=== PATIENT | male | born 1975 | race Caucasian/White ===

== ENCOUNTER 2024-06-02 13:06 | Outpatient (CLI) | payer BC, SELFPAY | END 2024-06-02 13:07 | disposition home or self-care (01) | PROVIDERS: PCP Emergency Medicine; Visit Provider Emergency Medicine | DX: E78.5 Hyperlipidemia, unspecified (principal); R73.01 Impaired fasting glucose; Z13.220 Encounter for screening for lipoid disorders | CPT/HCPCS: 80053; 80061; 84443 ==

== ENCOUNTER 2024-06-23 16:10 | Outpatient (CLI) | payer BC, SELFPAY | END 2024-06-23 16:11 | disposition home or self-care (01) | LOC: LKVREF 16:12 | PROVIDERS: PCP Emergency Medicine; Visit Provider Emergency Medicine | DX: Z86.39 Personal history of other endocrine, nutritional and metabolic disease (principal); E78.5 Hyperlipidemia, unspecified | CPT/HCPCS: 82607 ==

== ENCOUNTER 2024-07-05 19:01 | Outpatient (CLI) | payer BC, SELFPAY ==
--- NOTE | 2024-07-19 12:47 | W.PM.SLEEP ---
Sleep Study Details Details Interpreting Provider: Arley Date of Sleep Study: 07/05/24 Sleep Study Details: STUDY TYPE:? Home unattended ? BMI:? 37.6 ORDERING PROVIDER:Joyce Reeder INDICATION:? Concern about sleep apnea ? SLEEP SUMMARY:? 369 MINUTES MONITORED REPIRATORY SUMMARY: AHI 26.9. Note the entire study was done in the supine position Low oxygen 75 3.4% of study oxygen less than 90% Snoring 97.4% PERIODIC LIMB MOVEMENTS OF SLEEP:? Not recorded CARDIAC:? Range 43-99, mean 58.9 beats per minute IMPRESSION:? Moderate obstructive sleep apnea RECOMMENDATION: Treatment options include weight loss, CPAP and/or dental appliance. Would favor trial of CPAP.
== END 2024-07-05 19:02 | disposition home or self-care (01) ==
LOC: SLEEP 19:02
PROVIDERS: PCP Emergency Medicine; Visit Provider Emergency Medicine
DX: G47.33 Obstructive sleep apnea (adult) (pediatric) (principal)
CPT/HCPCS: 95806

== ENCOUNTER 2025-04-11 15:02 | Outpatient (CLI) | payer BC, SELFPAY | END 2025-04-11 15:03 | disposition home or self-care (01) | LOC: LKVREF 15:50 | PROVIDERS: Visit Provider Physician Assistant | DX: R10.9 Unspecified abdominal pain (principal); R53.83 Other fatigue | CPT/HCPCS: 84443 ==